=== PATIENT | male | born 1980 | race Caucasian/White ===

== ENCOUNTER 2016-07-15 11:43 | Emergency (ER) | payer SELFPAY ==
[~2016-07-15] VITALS: Ht 167.6 cm; Wt 85.0 kg
[2016-07-15 11:46] VITALS: Ht 167.6 cm; Wt 85.0 kg
[2016-07-15] MEDS ORDERED: IBUPROFEN 600 MG TAB PO ONE (12:30)
--- NOTE | 2016-07-15 12:38 | RADRPT ---
PROCEDURE: Right knee radiographs. CLINICAL INDICATION: Trauma due to a fall. Right knee pain. TECHNIQUE: Three views. Weight bearing. Frontal, lateral, and oblique. COMPARISON: No prior studies are available for comparison. FINDINGS: There is no fracture or dislocation. The soft tissues are normal. The articular surfaces are intact. There is no lytic or blastic lesion. There is no radiopaque foreign body. IMPRESSION: 1. Unremarkable images of the right knee. RPTAT: QQ .Nicho Dennis MD, Date Time Electronically viewed and signed by .Nicho Dennis MD, on 07/15/2016 12:38 .R/
[2016-07-15] MEDS ORDERED: IBUP-1542 PO (12:39)
[2016-07-15] MEDS ORDERED: HYDR-906 PO (12:39)
--- NOTE | 2016-07-15 12:45 | ERD ---
ER Documentation Chief Complaint Date/Time DATE: 07/15/16 TIME: 12:40 Chief Complaint 9/10 right knee pain x 1 day after nfall HPI Patient is a 36-year-old male who presents to the emergency department with right knee pain 1 day. Patient states he actually slipped on his wooden floors yesterday at home. Patient states he caught his fall with his right knee. Patient reports pain in the medial aspect of his knee. Patient does have a bruise in the affected region. Patient denies any fevers, chills, nausea , vomiting, abdominal pain, chest pain, shortness breath or loss consciousness. Patient denies any head injuries. Patient states that it is painful to ambulate, however he is able to ambulate with a limp. Patient denies any previous injuries to the affected extremity. ROS All systems reviewed and are negative except as per history of present illness. Medications Home Meds Active Scripts Hydrocodone/Acetaminophen (Parker 5-325 Tablet) 1 Each Tablet, 1 TAB PO Q6H Y for PAIN, #10 TAB Prov:KWADWO LANGLEY PA-C 07/15/16 Ibuprofen* (Motrin*) 600 Mg Tab, 600 MG PO Q6, #30 TAB Prov:KWADWO LANGLEY PA-C 07/15/16 Allergies Allergies: Coded Allergies: No Known Allergy (Unverified , 07/15/16) PMhx/Soc Medical and Surgical Hx: pt denies Medical Hx, pt denies Surgical Hx FmHx Family History: No diabetes Physical Exam Vitals Vital Signs Date Time Temp Pulse Resp B/P Pulse Ox O2 Delivery O2 Flow Rate FiO2 07/15/16 11:46 99.3 83 18 139/90 100 Physical Exam GENERAL: Well-developed, well-nourished male. Appears in no acute distress. HEAD: Normocephalic, atraumatic. EYES: Pupils are equally reactive bilaterally. EOMs grossly intact. No conjunctival erythema. ENT: Moist mucous membranes. No uvula deviation. No kissing tonsils. NECK: Supple. No meningismus. Normal range of motion of the neck. LUNG: Clear to auscultation bilaterally. No rhonchi, wheezing, rales or coarse breath sounds. HEART: Regular rate and rhythm. No murmurs, rubs or gallops. EXTREMITIES: Equal pulses bilaterally. No peripheral clubbing, cyanosis or edema. No unilateral leg swelling. NEUROLOGIC: Alert and oriented. Moving all four extremities without any difficulty. Normal speech. Steady gait. SKIN: Normal color. Warm and dry. No rashes or lesions. RIGHT KNEE: No obvious deformity. Minimal swelling noted on the medial aspect of the knee. +ecchymosis to the medial aspect of the knee. Decreased range of motion of the knee secondary to swelling and pain. Tender to palpation of the anterior and medial knee. Nontender to palpation of the tibia, fibula, ankle, thigh. No valgus/varus instability. Sensation intact to light touch. Neurovascularly intact. (Able to plantarflex, dorsiflex, paloma foot, invert foot , raise big toe.) 2+ DP and DT pulses. Results 24 hrs Current Medications Medications (Trade) Dose Ordered Sig/Madie Route PRN Reason Start Time Stop Time Status Last Admin Dose Admin Ibuprofen (Motrin) 600 mg ONCE ONCE PO 07/15/16 12:30 07/15/16 12:31 DC 07/15/16 12:36 Procedures/MDM ED COURSE: The patient was stable throughout ED course. I kept the patient and/or family informed of laboratory and diagnostic imaging results throughout the ED course. DIAGNOSTIC IMAGING: Read by radiologist. DIAGNOSTIC IMAGING REPORT Patient: PHONG MORALES : 1980 Age: 36 Sex: M MR #: [id number] DOS: 07/15/16 1206 Ordering MD: KWADWO LANGLEY PA-C Location: [facility] Room/Bed: PROCEDURE: Right knee radiographs. CLINICAL INDICATION: Trauma due to a fall. Right knee pain. TECHNIQUE: Three views. Weight bearing. Frontal, lateral, and oblique. COMPARISON: No prior studies are available for comparison. FINDINGS: There is no fracture or dislocation. The soft tissues are normal. The articular surfaces are intact. There is no lytic or blastic lesion. There is no radiopaque foreign body. IMPRESSION: 1. Unremarkable images of the right knee. RPTAT: QQ .Nicho Dennis MD, MD Date Time Electronically viewed and signed by .Nicho Dennis MD, MD on 07/15/2016 12:38 .R/ CC: KWADWO LANGLEY PA-C PROCEDURES: SPLINT APPLICATION: The patient was verbally consented at bedside prior to splint application. Patient was explained the risks, benefits and alternatives to this procedure. The patient was neurovascularly intact prior to and status post application of the splint. The patient tolerated the procedure well with no complications. Splint type: Pete wrap Extremity: right knee Indication: knee sprain MEDICATIONS GIVEN: Ibuprofen Patient tolerated medication well with no adverse reactions. Patient reported improvement in pain. MEDICAL DECISION MAKING: This is a 36-year-old male presents with right knee pain status post, ground level fall yesterday. Vital signs were reviewed. Patient was afebrile. Right Knee Xrays showed Unremarkable images of the right knee. Given these findings, the patient's presentation is most consistent with right knee sprain. I have a much lower clinical concern for femur fracture, patella fracture, tibial plateau fracture, septic joint, gout, popliteal cyst, prepatellar bursitis, patellofemoral syndrome, patellar tendinitis, Radha- Schlatter disease, osteoarthritis, osteomyelitis, DVT or compartment syndrome. At this time, unable to rule out any meniscus and knee ligament injuries. PRESCRIPTIONS: Ibuprofen, Parker DISCHARGE: At this time, patient is stable for discharge and outpatient management. RICE therapy and ROM exercises were advised to avoid stiffness. I have instructed the patient to follow-up with his/her primary care physician in 1-2 days. I have discussed with the patient the possibility of needing to see an clinical nurse specialist for further workup and imaging if the pain persists. I have instructed the patient to promptly return to the ER for any new or worsening symptoms including increased pain, swelling, redness, warmth or fever. The patient and/or family expressed understanding of and agreement with this plan. All questions were answered. Home care instructions were provided. Departure Diagnosis: Primary Impression: Knee pain Laterality: right Chronicity: acute Qualified Code: M25.561 - Acute pain of right knee Condition: Stable Patient Instructions: Knee Pain, Uncertain Cause Referrals: COMMUNITY CLINICS YOU HAVE RECEIVED A MEDICAL SCREENING EXAM AND THE RESULTS INDICATE THAT YOU DO NOT HAVE A CONDITION THAT REQUIRES URGENT TREATMENT IN THE EMERGENCY DEPARTMENT. FURTHER EVALUATION AND TREATMENT OF YOUR CONDITION CAN WAIT UNTIL YOU ARE SEEN IN YOUR DOCTORS OFFICE WITHIN THE NEXT 1-2 DAYS. IT IS YOUR RESPONSIBILITY TO MAKE AN APPOINTMENT FOR FOLOW-UP CARE. IF YOU HAVE A PRIMARY DOCTOR --you should call your primary doctor and schedule an appointment IF YOU DO NOT HAVE A PRIMARY DOCTOR YOU CAN CALL OUR PHYSICIAN REFERRAL HOTLINE AT IF YOU CAN NOT AFFORD TO SEE A PHYSICIAN YOU CAN CHOSE FROM THE FOLLOWING [facility] [address] [facility] [address] [facility] [facility] [address] [facility] [address] [facility] [address] [facility]. [facility] [address] [facility]. [facility] YOU HAVE RECEIVED A MEDICAL SCREENING EXAM AND THE RESULTS INDICATE THAT YOU DO NOT HAVE A CONDITION THAT REQUIRES URGENT TREATMENT IN THE EMERGENCY DEPARTMENT. FURTHER EVALUATION AND TREATMENT OF YOUR CONDITION CAN WAIT UNTIL YOU ARE SEEN IN YOUR DOCTORS OFFICE WITHIN THE NEXT 1-2 DAYS. IT IS YOUR RESPONSIBILITY TO MAKE AN APPOINTMENT FOR FOLOW-UP CARE. IF YOU HAVE A PRIMARY DOCTOR --you should call your primary doctor and schedule and appointment IF YOU DO NOT HAVE A PRIMARY DOCTOR YOU CAN CALL OUR PHYSICIAN REFERRAL HOTLINE AT . IF YOU CAN NOT AFFORD TO SEE A PHYSICIAN YOU CAN CHOSE FROM THE FOLLOWING [facility] INSTITUTIONS: [facility] [address] [place] [address] [facility] [address] [place] [address] [facility] [address] [place] [address] [facility] Hours: Mon-Fri 9:00 AM - 5:00 PM Additional Instructions: Call your primary care doctor TOMORROW for an appointment during the next 1-2 days.See the doctor sooner or return here if your condition worsens before your appointment time. Patient advised that we are unable to rule out any ligament or tendon injuries at this time. Patient was advised to follow-up with his primary care physician for referral to clinical nurse specialist. Patient may need a MRI on an outpatient basis of his pain persist. KWADWO LANGLEY PA-C Jul 15, 2016 12:45
== END 2016-07-15 13:18 | disposition home or self-care (01) ==
LOC: FTE 11:43
DX: M25.561 Pain in right knee (principal); Z04.3 Encounter for examination and observation following other accident
CPT/HCPCS: 73562